=== PATIENT | female | born 1980 | race Caucasian/White ===

== ENCOUNTER 2017-04-02 17:48 | Inpatient (IN) | payer OTHER ==
[~2017-04-02] VITALS: Ht 160 cm; Wt 130.2 kg
[2017-04-02] MEDS ORDERED: VANCOMYCIN PER PHARMACY MC PRN (20:30)
[2017-04-02] MEDS ORDERED: PROMETHAZINE 25 MG/ML, 1ML IM PRN (20:30)
[2017-04-02] MEDS ORDERED: DEXAMETHASONE 4 MG/ML, 5ML IVPush SCH (20:30)
[2017-04-02] MEDS ORDERED: GUAIFENESIN/DM 200-20MG, 10ML UDC PO PRN (20:30)
[2017-04-02] MEDS ORDERED: HYDROmorphone 2 MG/ML, 1ML IVPush PRN (20:30)
[2017-04-02] MEDS ORDERED: ONDANSETRON 2MG/ML, 2ML IVPush PRN (20:30)
[2017-04-02 21:00] VITALS: BP 106/73
[2017-04-02] MEDS ORDERED: ZOLPIDEM 5MG TABLET PO PRN (21:00)
[2017-04-02] MEDS ORDERED: PLEASE ENTER ALLERGIES MC SCH ×2 (21:30)
[2017-04-02] MEDS: OXYcodone IR 5MG TABLET PO PRN (21:38)
[2017-04-02] MEDS: AMPICILLIN/SULBACTAM 3 GM in SODIUM CHLORIDE 0.9% 100 ML IV SCH (21:59)
[2017-04-02] MEDS: NS + 20MEQ KCL 1,000 ML IV SCH (21:59)
[2017-04-02] MEDS ORDERED: PHARMACOKINETIC MONITORING MC PRN (22:00)
[2017-04-02] MEDS ORDERED: PHARMACOKINETIC CONSULTATION MC ONE (22:00)
[2017-04-02] MEDS: ENOXAPARIN 40 MG/0.4 ML SQ SCH (22:00)
[2017-04-02] MEDS: DEXAMETHASONE 10 MG in SODIUM CHLORIDE 0.9% 50 ML IV SCH (23:11)
[2017-04-02] MEDS: VANCOMYCIN 2,000 MG in SODIUM CHLORIDE 0.9% 500 ML IV SCH (23:44)
[2017-04-03] MEDS: OXYcodone IR 5MG TABLET PO PRN ×4 (01:45→22:43)
[2017-04-03] MEDS: AMPICILLIN/SULBACTAM 3 GM in SODIUM CHLORIDE 0.9% 100 ML IV SCH ×4 (04:06→22:25)
[2017-04-03 04:10] VITALS: BP 113/70
[2017-04-03 05:24] LABS: HEMATOCRIT 34.5 % (34.6-47.8); HEMOGLOBIN 11.3 g/dL (11.7-16.4); WHITE BLOOD COUNT 18.6 x10^3/uL (3.4-10)
[2017-04-03 05:45] LABS: ASPARTATE AMINO TRANSFERASE 16 U/L (15-37); BLOOD UREA NITROGEN 12 mg/dL (7-18)
[2017-04-03 06:00] LABS: DIFF TOTAL CELLS COUNTED 100 CELL DIFF
[2017-04-03 06:02] LABS: POIKILOCYTOSIS 1+; VERIFY COUNTS? YES
[2017-04-03 06:03] LABS: LARGE PLATELETS 1+
[2017-04-03 07:33] VITALS: BP 121/80
[2017-04-03] MEDS: CIPROFLOXACIN/HYDROCORTISONE EAR SUSP 0.2-1%, 10ML LEFT EAR SCH (09:35)
[2017-04-03] MEDS: DEXAMETHASONE 10 MG in SODIUM CHLORIDE 0.9% 50 ML IV SCH ×2 (11:42→23:49)
[2017-04-03] MEDS: VANCOMYCIN 2,000 MG in SODIUM CHLORIDE 0.9% 500 ML IV SCH (12:15)
[2017-04-03 13:34] VITALS: BP 108/75
[2017-04-03] MEDS: ACETAMINOPHEN 325 MG TABLET PO PRN ×2 (15:06→22:43)
[2017-04-03] MEDS: NS + 20MEQ KCL 1,000 ML IV SCH (15:49)
[2017-04-03] MEDS: PHENOL THROAT SPRAY BOTTLE MM PRN ×2 (15:49→22:47)
[2017-04-03 18:24] VITALS: BP 112/77
[2017-04-03] MEDS: ENOXAPARIN 40 MG/0.4 ML SQ SCH (22:27)
[2017-04-03 23:59] VITALS: BP 115/78
[2017-04-04] VITALS: BP 115/78
[2017-04-04] MEDS: VANCOMYCIN 2,000 MG in SODIUM CHLORIDE 0.9% 500 ML IV SCH ×2 (00:27→12:05)
[2017-04-04] MEDS: AMPICILLIN/SULBACTAM 3 GM in SODIUM CHLORIDE 0.9% 100 ML IV SCH ×4 (04:06→23:01)
[2017-04-04 05:10] LABS: HEMATOCRIT 33.5 % (34.6-47.8); HEMOGLOBIN 10.9 g/dL (11.7-16.4); WHITE BLOOD COUNT 15.5 x10^3/uL (3.4-10)
[2017-04-04 06:22] VITALS: BP 126/84
[2017-04-04] MEDS: CIPROFLOXACIN/HYDROCORTISONE EAR SUSP 0.2-1%, 10ML LEFT EAR SCH (09:12)
[2017-04-04] MEDS: ACETAMINOPHEN 325 MG TABLET PO PRN ×3 (09:15→23:08)
[2017-04-04] MEDS: DEXAMETHASONE 10 MG in SODIUM CHLORIDE 0.9% 50 ML IV SCH (11:32)
[2017-04-04 13:31] VITALS: BP 101/69
[2017-04-04] MEDS: OXYcodone IR 5MG TABLET PO PRN ×2 (16:46→23:09)
[2017-04-04] MEDS: ENOXAPARIN 40 MG/0.4 ML SQ SCH (22:32)
[2017-04-05] MEDS: VANCOMYCIN 2,000 MG in SODIUM CHLORIDE 0.9% 500 ML IV SCH ×2 (00:06→12:12)
[2017-04-05 01:41] VITALS: BP 119/80
[2017-04-05] MEDS: AMPICILLIN/SULBACTAM 3 GM in SODIUM CHLORIDE 0.9% 100 ML IV SCH ×4 (05:12→23:05)
[2017-04-05 05:41] LABS: HEMOGLOBIN 11.2 g/dL (11.7-16.4); WHITE BLOOD COUNT 17.8 x10^3/uL (3.4-10)
[2017-04-05] MEDS: CIPROFLOXACIN/HYDROCORTISONE EAR SUSP 0.2-1%, 10ML LEFT EAR SCH (08:02)
[2017-04-05 08:52] VITALS: BP 130/87
[2017-04-05 14:50] VITALS: BP 124/84
[2017-04-05] MEDS: OXYcodone IR 5MG TABLET PO PRN (16:43)
[2017-04-05] MEDS: ACETAMINOPHEN 325 MG TABLET PO PRN (16:44)
[2017-04-05 19:02] VITALS: BP 112/74
[2017-04-05] MEDS: ENOXAPARIN 40 MG/0.4 ML SQ SCH (22:07)
[2017-04-06] VITALS: BP 117/72
[2017-04-06] MEDS: AMPICILLIN/SULBACTAM 3 GM in SODIUM CHLORIDE 0.9% 100 ML IV SCH ×2 (05:22→12:15)
[2017-04-06 07:31] VITALS: BP 113/76
[2017-04-06] MEDS: CIPROFLOXACIN/HYDROCORTISONE EAR SUSP 0.2-1%, 10ML LEFT EAR SCH (08:30)
[2017-04-06 09:41] LABS: HEMATOCRIT 41.2 % (34.6-47.8); HEMOGLOBIN 13.3 g/dL (11.7-16.4); WHITE BLOOD COUNT 15.8 x10^3/uL (3.4-10)
[2017-04-06 09:46] LABS: DIFF TOTAL CELLS COUNTED 100 CELL DIFF
[2017-04-06 09:55] LABS: POLYCHROMASIA 1+; VERIFY COUNTS? YES
[2017-04-06] MEDS ORDERED: VANCOMYCIN 2,000 MG in SODIUM CHLORIDE 0.9% 500 ML IV SCH (10:00)
[2017-04-06 12:05] VITALS: BP 128/95
[2017-04-06] MEDS ORDERED: AMOX1TAB64 PO (12:09)
[2017-04-06] MEDS ORDERED: SULF1TAB24 PO (12:10)
== END 2017-04-06 13:15 | disposition home or self-care (01) | DRG 871 ==
LOC: 4NOR 19:23
PROVIDERS: ADMIT Internal Medicine; ATTEND Family Medicine
DX: A41.9 Sepsis, unspecified organism (principal); E43 Unspecified severe protein-calorie malnutrition; E87.1 Hypo-osmolality and hyponatremia; L03.221 Cellulitis of neck; H60.12 Cellulitis of left external ear; H60.92 Unspecified otitis externa, left ear; J02.0 Streptococcal pharyngitis; K11.20 Sialoadenitis, unspecified; Z98.51 Tubal ligation status
CPT/HCPCS: 36415; 80053; 80202; 82565; 84145; 85025; J0295; J1100; J1650; J3370; J3480; J7040